=== PATIENT | female | born 1965 | race African-American/Black ===

== ENCOUNTER 2020-06-28 09:29 | Emergency (ER) | payer MEDICARE ==
[~2020-06-28] VITALS: Ht 170.2 cm; Wt 99.8 kg
== END 2020-06-28 09:45 | disposition home or self-care (01) ==
LOC: ER 09:43
DX: I10 Essential (primary) hypertension (principal)
CPT/HCPCS: 99282

== ENCOUNTER → 2020-11-08 | Outpatient (CLI) | payer MEDICARE | LOC: RAD 11:20 | PROVIDERS: ATTEND Family Medicine | DX: J18.9 Pneumonia, unspecified organism (principal); Z87.09 Personal history of other diseases of the respiratory system | CPT/HCPCS: 71046 ==

== ENCOUNTER → 2021-03-27 | Outpatient (CLI) | payer MEDICARE | LOC: RAD 11:22 | PROVIDERS: ATTEND Family Medicine | DX: M54.2 Cervicalgia (principal); M54.50 Low back pain, unspecified | CPT/HCPCS: 72050; 72110 ==

== ENCOUNTER → 2021-11-01 | Outpatient (CLI) | payer MEDICARE | LOC: RAD 12:13 | PROVIDERS: ATTEND Family Medicine | DX: Z09 Encounter for follow-up examination after completed treatment for conditions other than malignant neoplasm (principal); J90 Pleural effusion, not elsewhere classified | CPT/HCPCS: 71046 ==